=== PATIENT | male | born 1985 | race Caucasian/White ===

== ENCOUNTER 2020-01-03 18:48 | Emergency (ER) | payer BC ==
[~2020-01-03] VITALS: Ht 188 cm; Wt 159.1 kg
[~2020-01-03 18:48] MED LIST: oxycodone
[2020-01-03] MEDS ORDERED: PERTUSS(ACELL),DIPH,TET VAC/PF 0.5 ML VIAL IM ONE (20:00)
[2020-01-03 20:31] VITALS: BP 141/84
== END 2020-01-03 20:33 | disposition home or self-care (01) ==
LOC: EMS 18:51
DX: S61.211A Laceration without foreign body of left index finger without damage to nail, initial encounter (principal); W26.0XXA Contact with knife, initial encounter; Y93.89 Activity, other specified; Y92.89 Other specified places as the place of occurrence of the external cause; Y99.8 Other external cause status
CPT/HCPCS: 12001; 90471; 90715